=== PATIENT | female | born 1945 | race Caucasian/White ===

== ENCOUNTER → 2017-01-28 | Outpatient (CLI) | payer OTHER ==
[~2017-01-28] MED LIST: ASPI81TA28 PO; CHLO50TA PO; CHOL100010 PO; LIDO5DIS10 TD; MELO7.5T6 PO; MULTTAB45 PO; VITA400C15 PO
== END | disposition home or self-care (01) ==
LOC: C.LABSPEC 17:43
PROVIDERS: ATTEND Obstetrics & Gynecology
DX: N89.8 Other specified noninflammatory disorders of vagina (principal)

== ENCOUNTER → 2017-06-08 | Outpatient (CLI) | payer OTHER ==
[2017-06-08 10:09] LABS: BASO % 0.3 %; BASO ABS # 0.02 K/uL (0-0.2); COMPLETE YES; HEMATOCRIT 38.5 % (37-47); IG% 0.2 %; LYMPH ABS # 1.98 K/uL (1.2-3.4); MEAN CELL VOLUME 91.7 fL (80-100); MEAN CORPUSCULAR HEMOGLOBIN 31.4 pg (25-34); MEAN CORPUSCULAR HGB CONC 34.3 g/dl (32-36); MEAN PLATELET VOLUME 10.2 fL (7.4-10.4); MONO % 8.1 %; NEUT % 56.4 %; PLATELET COUNT 239 K/uL (130-400); WHITE BLOOD COUNT 5.82 K/uL (4.8-10.8)
[2017-06-08 10:35] LABS: ALT/SGPT 15 U/L (12-78); BLOOD UREA NITROGEN 15 mg/dl (7-18); BUN/CREATININE RATIO 15.7 (10-20); CALCIUM 9.6 mg/dl (8.5-10.1); CARBON DIOXIDE 28 mmol/L (21-32); CHLORIDE 100 mmol/L (98-107); CHOLESTEROL 149 mg/dl (0-200); CREATININE 0.97 mg/dl (0.60-1.20); GLUCOSE 81 mg/dl (70-99); POTASSIUM 3.9 mmol/L (3.5-5.1); SODIUM 135 mmol/L (136-145)
[2017-06-08 10:46] LABS: ALB/GLOB RATIO 1.2 (0.9-2); ALKALINE PHOSPHATASE 84 U/L (45-117); AST/SGOT 18 U/L (15-37); HDL CHOLESTEROL 50 mg/dl; LDL CHOLESTEROL CALCULATED 77 mg/dl; TRIGLYCERIDES 108 mg/dl (0-150); VERY LOW DENSITY LIPOPROT CALC 22 mg/dl
== END | disposition home or self-care (01) ==
LOC: C.LAB 09:06
PROVIDERS: ATTEND Internal Medicine Geriatric Medicine
DX: I10 Essential (primary) hypertension (principal); E78.5 Hyperlipidemia, unspecified; M19.90 Unspecified osteoarthritis, unspecified site; Z79.01 Long term (current) use of anticoagulants; I48.0 Paroxysmal atrial fibrillation

== ENCOUNTER 2023-11-24 05:13 | Observation (INO) ==
--- NOTE | 2023-10-31 09:27 | PAT Medication Instructions ---
Medication Instructions Date of Service October 31, 2023 Home Medications Medication Instructions Recorded alendronate 70 mg tablet See Rx Instructions .Route 10/07/22 .COMPLEX #12 tabs apixaban 5 mg tablet (Eliquis) 5 mg PO BID #180 tabs 09/09/23 calcium carbonate 500 mg calcium (1,250 mg) tablet (Calcium 500) 500 mg PO QAM multivitamin (Daily Multi-Vitamin tablet) 1 tab PO QAM alendronate 70 mg tablet See Rx Instructions .Route .COMPLEX apixaban 5 mg tablet (Eliquis) 5 mg PO BID atorvastatin 10 mg tablet 10 mg PO HS glucosamine sulf dipotassium Cl 750 mg-chondroitin sulf 600 mg tablet 0.5 tab PO QAM magnesium oxide 500 mg capsule 500 mg PO HS metoprolol succinate 25 mg tablet,extended release 24 hr 25 mg PO QPM ASK your prescriber and surgeon apixaban 5 mg tablet (Eliquis) 5 mg PO BID(in order for spinal or epidural anesthesia, Eliquis needs to be stopped 72 hours/3 days before surgery. Please check if okay with doctor that prescribes this to you) STOP taking 2 weeks before surgery (or as soon as possible if surgery is within 2 weeks) glucosamine sulf dipotassium Cl 750 mg-chondroitin sulf 600 mg tablet 0.5 tab PO QAM DO NOT take the morning of surgery calcium carbonate 500 mg calcium (1,250 mg) tablet (Calcium 500) 500 mg PO QAM multivitamin (Daily Multi-Vitamin tablet) 1 tab PO QAM alendronate 70 mg tablet See Rx Instructions .Route .COMPLEX Take evening before surgery atorvastatin 10 mg tablet 10 mg PO HS magnesium oxide 500 mg capsule 500 mg PO HS metoprolol succinate 25 mg tablet,extended release 24 hr 25 mg PO QPM Other Notes NOTHING TO EAT OR DRINK AFTER MIDNIGHT. If you have any questions please call us at [phone] or [phone] or [phone] or [phone]
--- NOTE | 2023-11-04 09:38 | Anesthesiology Consultation ---
Date of Service November 04, 2023 Assessment & Plan (1) Encounter for pre-operative examination: - Infectious disease screening: Per assessment on 11/04/23: No known infectious disease contacts or current infectious disease symptoms. Did have RSV 10/07/23 ([place])- resolved. No noted recent Covid positive test result. - Medication instructions: patient made aware that for neuraxial anesthesia, Apixaban needs to be held 72 hours prior to surgery. Patient voiced understanding/will check if okay with prescriber. - Cardiology visit (01/04/23): "atrial fibrillation: She is doing quite well. No symptoms. No clinical recurrence. It is possible that she has occult episodes of atrial fibrillation. However, in the absence of symptoms or documented elevated heart rates are not sure any change in therapy is required. She will continue on systemic anticoagulation.. Hypertension: Blood pressure quite good. She was interested in trying a little less medicine. She has had some element of bradycardia previously. I recommended trying 25 mg metoprolol succinate daily. Her blood pressure stays good we can reduce the prescription.. Mitral regurgitation: Mild in 2014. No murmur on examination. Plan Details Follow Up: 1 Year" - Outpatient joint assessment: Pt currently scheduled for inpatient pathway. If surgeon requests review for outpatient joint pathway, patient is not recommended candidate for outpatient joint program from anesthesia standpoint based on available information. Chart Review Chart Review: Acceptable Risk for Surgery and Patient seen in Pre Admission Testing Teaching & Discussion Pre-Anesthesia Teaching/Discussion Notes: Instructed NPO after midnight before surgery,except medications with 15 cc of water. Medication instructions provided according to the PAT guidelines. History Surgery Operation Date: 11/24/23 12:30 Proposed Procedures p Left Total Knee Arthroplasty - Kyler Kim MD Height/Weight Height: 5 ft 4 in Weight: 64.7 kg Allergies Allergy/AdvReac Type Severity Reaction Status Date / Time No Known Drug Allergies Allergy Verified 10/31/23 08:06 Medications Home Medications Medication Instructions Recorded Confirmed Last Taken calcium carbonate 500 mg calcium 500 mg PO QAM 05/15/19 10/31/23 Unknown (1,250 mg) tablet (Calcium 500) multivitamin (Daily Multi-Vitamin 1 tab PO QAM 05/15/19 10/31/23 Unknown tablet) alendronate 70 mg tablet See Rx Instructions .Route 10/07/22 10/31/23 Unknown .COMPLEX #12 tabs apixaban 5 mg tablet (Eliquis) 5 mg PO BID #180 tabs 09/09/23 10/31/23 Unknown atorvastatin 10 mg tablet 10 mg PO HS 10/31/23 10/31/23 Unknown glucosamine sulf dipotassium Cl 0.5 tab PO QAM 10/31/23 10/31/23 Unknown 750 mg-chondroitin sulf 600 mg tablet magnesium oxide 500 mg capsule 500 mg PO HS 10/31/23 10/31/23 Unknown metoprolol succinate 25 mg 25 mg PO QPM 10/31/23 10/31/23 Unknown tablet,extended release 24 hr Past Medical History Medical History Arthritis Atrial fibrillation Pulmonary vein isolation at [facility] 08/2018, "resolved issue" Follows with Dr. Briones Carotid artery plaque pt states resolved "last time checked, no blockage noted" Carotid doppler 07/2020: No hemodynamically significant stenosis seen within the carotid arteries. No significant atherosclerotic plaque within the carotid arteries. Hx of migraines Hyperlipidemia Hypertension Osteopenia after menopause Exercise / Class Metabolic Activity II 4-5 Yardwork/Stairs/Walk up hill (one FS (no CP, no SOB)) Past Family History Family History Sister Breast cancer Lung cancer Brother Myocardial infarction Diabetes Mother Myocardial infarction Hypertension Dementia Father Hypertension Lung cancer Denies family history of Ovarian cancer Prostate cancer Colorectal cancer Stroke Past Surgical History Surgical History Family history of reaction to anesthesia Sister- had problems with anesthesia, unsure of details "required CPR after childbirth" History of anesthesia reaction BP dropped with cataract surgery > "doesn't take much to work" History of colonoscopy History of tonsillectomy and adenoidectomy History of tooth extraction S/P ablation of atrial fibrillation 2017 [facility] S/P cataract surgery R/L S/P right knee arthroscopy S/P tubal ligation Past Anesthesia History Other * Patient- BP dropped with cataract surgery > "doesn't take much to work" * Sister- had problems with childbirth, unsure of details "required CPR after childbirth" History of PONV No Hx of PONV and No Hx of Motion Sickness Social History Smoking Status: Never smoker Do You Dip or Chew Tobacco: No Hx Alcohol Use: No Hx Substance Use: No Review of Systems Patient denies chest pain, shortness of breath, dyspnea on exertion, fever, chills, cough, wheezing, palpitations. Physical Exam Vital Signs VITALS BP 119/73 P 59 TEMP 98.0 SP02 97%RA RESP 18 PHYSICAL Full cervical extension range of motion. Full TMJ range of motion. TMD 3 finger breaths Mallampati Score 1 Dentition: intact, + lower right side bridge Lungs: clear throughout to auscultation Cardiac: regular rate and rhythm, no murmurs noted Spine: normal Carotid arteries: negative bruit Extremities: no LE edema Lab Results Anesthesia Preop Results Results Anesthesia Widget: WBC 5.59 K/ul (4.8-10.8) 11/04/23 Hgb 12.1 g/dl (12.0-16.0) 11/04/23 Hct 36.0 % (37.0-47.0) L 11/04/23 Plt 226 K/uL (130-400) 11/04/23 Na 137 mmol/L (136-145) 11/04/23 K 3.8 mmol/L (3.5-5.1) 11/04/23 Cl 103 mmol/L (98-107) 11/04/23 CO2 27 mmol/L (21-32) 11/04/23 BUN 18 mg/dl (6-23) 11/04/23 Creat 0.84 mg/dl (0.6-1.2) 11/04/23 Glucose Level 90 mg/dl (70-99(Fasting)) 11/04/23 PT 11.4 Seconds (9.0-12.0) 11/04/23 PTT 28 Seconds (21-31) 11/04/23 INR 1.0 (0.9-1.1) 11/04/23 COVID-19 PCR NEGATIVE (Negative) 10/07/23 Blood Type O Positive 11/04/23 Antibody Screen NEGATIVE 11/04/23 Testing Electrocardiogram Date: 11/04/23 SB at 59bpm. NS STA. No significant change compared to 05/01/2009 per development director comparison. Chest X-Ray Date: 11/04/23 FINDINGS: PA and lateral chest radiographs are compared to study dated 11/03/2006. The cardiomediastinal silhouette is top normal for projection noting atherosclerotic calcification of the thoracic aorta. Chronic interstitial thickening similar to previous. There is mild bibasilar scarring/atelectasis. The lungs and pleural spaces are otherwise clear. There is no pneumothorax. The skeletal structures are osteopenic. The bony thorax appears intact. IMPRESSION: No active disease in the chest.
--- NOTE | 2023-11-20 11:20 | History & Physical Report ---
Date of Service November 20, 2023 Assessment & Plan (1) Degenerative arthritis of knee, bilateral: 78-year-old female with a history of atrial fibrillation in the past status post ablation but still on Eliquis with advanced bilateral knee DJD. She is failed conservative measures. She is ready to proceed with surgery. Her left knee is bothering more than the right. Will go and proceed with left knee replacement. Plan will proceed with left knee replacement. The risks and benefits of this of this procedure were explained to the patient include but not limited to DVT, PE, , infection, neurovascular injury, blood clots, limited range of motion, need for further surgery in the future. The patient understands and desires to proceed. Informed consent was obtained. We did talk about stopping Eliquis 3 days preop. Will start on this prophylactically immediately postop 24 hours. Will start at a lower dose. She is planned to be discharged to home using the [facility] health program. History of Present Illness Chief Complaint: . Bilateral knee pain left side greater than the right. Primary Care Provider: Donnie Encinas MD . The patient is an 78-year-old female who presents for definitive treatment of her knees. She got a fairly long several year history of bilateral knee pain discomfort describes gotten worse over the past 5 to 6 years. The left knee bothers her more than the right. She been through extensive conservative treatment including medicines as well as injections which have helped a little bit but no long-term or significant benefit. Describes global pain. Occasional giving way. She is looking to have an surgery. Allergies Allergy/AdvReac Type Severity Reaction Status Date / Time No Known Drug Allergies Allergy Verified 10/31/23 08:06 Home Medications Medication Instructions Recorded Confirmed Type calcium carbonate 500 mg calcium 500 mg PO QAM 05/15/19 10/31/23 History (1,250 mg) tablet (Calcium 500) multivitamin (Daily Multi-Vitamin 1 tab PO QAM 05/15/19 10/31/23 History tablet) alendronate 70 mg tablet See Rx Instructions .Route 10/07/22 10/31/23 Rx .COMPLEX #12 tabs apixaban 5 mg tablet (Eliquis) 5 mg PO BID #180 tabs 09/09/23 10/31/23 Rx atorvastatin 10 mg tablet 10 mg PO HS 10/31/23 10/31/23 History glucosamine sulf dipotassium Cl 0.5 tab PO QAM 10/31/23 10/31/23 History 750 mg-chondroitin sulf 600 mg tablet magnesium oxide 500 mg capsule 500 mg PO HS 10/31/23 10/31/23 History metoprolol succinate 25 mg 25 mg PO QPM 10/31/23 10/31/23 History tablet,extended release 24 hr Past Med/Surg History Medical History Arthritis Hx of migraines Hypertension Hyperlipidemia Carotid artery plaque pt states resolved "last time checked, no blockage noted" Carotid doppler 07/2020: No hemodynamically significant stenosis seen within the carotid arteries. No significant atherosclerotic plaque within the carotid arteries. Osteopenia after menopause Atrial fibrillation Pulmonary vein isolation at [facility] 08/2018, "resolved issue" Follows with Dr. Briones Surgical History Family history of reaction to anesthesia Sister- had problems with anesthesia, unsure of details "required CPR after childbirth" History of anesthesia reaction BP dropped with cataract surgery > "doesn't take much to work" S/P right knee arthroscopy History of colonoscopy History of tooth extraction History of tonsillectomy and adenoidectomy S/P ablation of atrial fibrillation 2017 [facility] S/P tubal ligation S/P cataract surgery R/L Family History Sister Breast cancer Lung cancer Brother Myocardial infarction Diabetes Mother Myocardial infarction Hypertension Dementia Father Hypertension Lung cancer Denies family history of Ovarian cancer Prostate cancer Colorectal cancer Stroke Social History Smoking Status: Never smoker Second Hand Exposure: No; Do You Dip or Chew Tobacco: No; Hx Alcohol Use: No Hx Substance Use: No Preferred Language: Turkish Communication Ability: Effective Visual Impairment: Limited Hearing Ability: Use of Hearing Aid 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 Physical Exam . Physical examination was a pleasant healthy-appearing 78-year-old female. Looks younger than her stated age. Examination of the left knee reveals patient ambulates independently. She got varus alignment to her knee. She got bony perjury medially. Range of motion is about 10 degrees show full extension to 120 degrees of flexion. No particular pain with hip motion. No instability. She is neurologically intact. Examination of the right knee reveals a similar varus deformity. It is less severe. Small knee effusion. Bone hypertrophy medially. Range of motion is 5- 1 20. No instability. No pain with hip motion. Constitutional WD/WN, vitals as above Neck trachea midline, no thyromegaly Respiratory normal respiratory effort, lungs clear to auscultation Cardiovascular RRR, no murmur, no edema Gastrointestinal (Abdomen) normal bowel sounds, soft, nontender, no hepatosplenomegaly Results & Data Results & Data Laboratory Results . Diagnostic Findings . X-rays of both knees were reviewed. Shows advanced bilateral knee DJD. She is got complete loss of the medial joint space in both knees. She got osteophytes mostly medial but some laterally. The right knee is actually little bit worse on x-ray than the left. PG Care Time/CCT Total # of Minutes Spent Total Time Spent with Patient: Total time spent is greater than 50% in coordination of care (as documented) at patient's floor/unit and/or counseling patient: Coding Level of Care Code None Diagnoses Degenerative arthritis of knee, bilateral M17.0
[2023-11-24] MEDS: LR 500ML BOLUS, THEN 15ML/HR IV SCH (05:51)
[2023-11-24] MEDS: LR 60ML/HR IV SCH (05:51)
[2023-11-24] MEDS: CeleBREX 200 MG CAP PO SCH (05:52)
[2023-11-24] MEDS: FAMOTIDINE 20 MG TAB PO SCH (05:52)
[2023-11-24] MEDS: METOCLOPRAMIDE HCL 10 MG TABLET PO SCH (05:52)
[2023-11-24] MEDS: ACETAMINOPHEN 500 MG TAB PO SCH ×2 (05:52→14:06)
[2023-11-24] MEDS: dexAMETHasone**PF** 10 MG/ML VIAL IV SCH (05:52)
[2023-11-24] MEDS ORDERED: BUPIVACAINE 0.5 % 5 MG/1 ML PF 10ML VIAL ONE (06:21)
[2023-11-24] MEDS ORDERED: BUPIVACAINE 0.25% PF 30 ML VIAL ONE (06:22)
[2023-11-24] MEDS ORDERED: PROPOFOL IV EMULSION 10 MG/ML 20 ML VIAL IV ONE (06:43)
[2023-11-24] MEDS ORDERED: MIDAZOLAM HCL 1 MG/ML 2ML VIAL ONE (06:43)
--- NOTE | 2023-11-24 06:55 | History & Physical Bridge Note ---
Date of Service November 24, 2023 History & Physical Bridge Note I have examined the patient, reviewed the History & Physical and in the interval since the performance of the History & Physical I have noted the following changes of clinical significance: no changes noted
[2023-11-24] MEDS ORDERED: ePHEDrine sulfate 50 MG/5 ML SYR ONE (07:06)
[2023-11-24] MEDS: ceFAZolin 2000MG 2,000 MG/15 ML SYR IV SCH (07:08)
[2023-11-24] MEDS ORDERED: ePHEDrine sulfate 50 MG/ML AMP IV PRN (07:27)
[2023-11-24] MEDS ORDERED: fentaNYL citrate PF 100 MCG/2 ML VIAL IV PRN (07:27)
[2023-11-24] MEDS ORDERED: ONDANSETRON INJ 2 MG/ML 2 ML VIAL IV PRN ×2 (07:27→11:14)
[2023-11-24] MEDS ORDERED: ATROPINE SULFATE 0.1 MG/ML 10ML SYR IV PRN (07:27)
[2023-11-24] MEDS: ORTHO JOINT ANESTHETIC ONE (07:35)
[2023-11-24] MEDS: ROPIV 0.5% 246mg, Ketorolac 30mg, EPINEPHrine 0.5mg in NSS INFIL SCH (07:35)
[2023-11-24] MEDS: TRANEXAMIC ACID 1,000 MG **IV Intra-op IV SCH (07:45)
--- NOTE | 2023-11-24 09:01 | Operative Report ---
PG Post Operative Report Pre & Post Diagnosis Operation Date: 11/24/23 07:00 Pre-Op Diagnosis: Left Knee Advanced Degenerative Joint Disease Post-Op Diagnosis: Left Knee Advanced Degenerative Joint Disease I identified the patient and participated in the time-out.: Yes Procedure Operation Date: 11/24/23 07:00 Actual Procedures p Left Total Knee Arthroplasty(Left) - Kyler Kim MD Surgeon Kyler Kim MD Hr Receptionist Varun Edwards PA-C Estimated Blood Loss 50 Findings Consistent with Post-Op Diagnosis Operative findings reveal advanced left knee DJD. She had extensive grade 4 [id number] disease of the medial side of her knee. She had scattered and less severe bony and grade 4 changes laterally as well as in the patellofemoral joint. Moderate-sized joint effusion. Fixed varus deformity to her knee. Specimens Left knee sent for pathology. Anesthesia Type Spinal MAC Complications none Disposition Accompanied Patient To Recovery: No Indications Patient is an 78-year-old female is had a long history of bilateral knee pain discomfort describes gotten worse over time patient been to extensive conservative treatment which became less successful over time. The left knee does bother him more than the right. She like to proceed with a left total knee arthroplasty. Description of Procedure Operative implants consist of: 1. Biomet Vanguard size 65 left posterior stabilized femoral component. 2. Biomet size 71 tibial tray. 3. 14 mm post stabilized polyethylene insert. 4. 31 x 8 all poly patella. The patient was taken to the op room, identified, placed on the operating table in the supine position. All contact areas were appropriately padded. IV antibiotics tried by anesthesia team. A spinal anesthetic and abductor canal block had provided in the holding area. A Rivero catheter was placed in sterile fashion for the left side tip was then placed in the left lower extremities and prepped draped in usual sterile fashion. The left leg was elevated exsanguinated with use of an Esmarch and the turn was placed at 300 mmHg. An anterior approach to the left knee was then performed to longitudinal incision centered over the patella. Sharp dissection was got through subcutaneous tissue down the extensor mechanism. Medial parapatellar arthrotomy incision was made. Some subperiosteal dissection was carried out medially. The fat pad was resected from Neath patella tendon. Lateral patellofemoral ligament was released. Patella subluxated laterally and the knee was flexed with the osteophytes taken off distal femur. The ACL and PCL were then released from the distal femur and the tibia was subluxated anteriorly. The external treatment line jig was then placed in the interface the tibia and adjusted 14 mm medially. Proximal tibial cut was made remove about 2 mm of bone from the medial side. The tibia was sized to a size 71. Some osteophytes taken off medially. Attention drawn the femur. The distal femur examined with a sharp drill. Intramedullary canal was suction. A left 5 degree valgus cutting guide was placed. The distal femoral cutting block was pinned in place. Distal femoral cut was made to take an additional 3 mm of bone off distal femur. The femur was then sized to a size 65. The AP cutting block was pinned parallel to the epicondylar axis which was 5 degrees of external rotation. The anterior cut, anterior chamfer, posterior cut, posterior chamfer cuts were made. The box cutting guide was placed in the just slight lateral and the box cut was made. The knee was flexed. The remnants of the medial and lateral menisci were excised. The osteophytes taken off the posterior aspect the femur. A trial femoral component was placed. The tibial tray was pinned Natalya external rotation and the drill and stem punch used to create defect in proximal tibia for the tibial tray. The knee was then trialed and the 14 mm insert fit most appropriately. Attention drawn the patella. The patella was cleaned of all soft tissues. Patella thickness measured 21 mm in thickness was cut down to 14. Was sized to a size 31 patella. The lug holes were drilled for 31 patella. The lateral osteophyte was removed. Patella button was placed. Knee was taken through range of motion patella tracked nicely with no thumbs test. Attention drawn to place the permanent components. All trial components were removed. Bone plug was placed in the distal femur limit blood loss. A double batch Palacos G cement was mixed. A Biomet Vanguard size 65 left Po stabilized femoral component, size 71 tibial tray, 14 mm pro stabilized polyethylene insert, and a 31 x 8 all poly patella then cemented in place. The knee was brought out into full extension till cement hardened. Final cement check was then performed. The pericapsular tissues were injected with total of 100 cc of joint injection mix. The patient did receive 1 g of tranexamic acid. The tourniquet was let down for final tourniquet time of 54 minutes. Hemostasis assured use electrocautery. Extensor Metros then closed with combination 1 PDS suture #1 Vicryl suture in a [id number] fashion. Extensor Meclomen checked found to be intact and subcutaneous tissues then closed with 2 Dexon suture in a buried interrupted fashion skin was closed skin fadi. Leg was then cleaned and dried and sterile dressed with Xeroform, 4 fours, sterile cast padding, Federico bandage were applied. The patient was then transferred to the recovery room in stable condition. Patient tolerated the procedure well and there were no complications. Varun Edwards, my physician assistant center manager, was present for the entire procedure. His assistance was essential and required for appropriate patient positioning, prepping and draping, surgical exposure, performing the technical details of the operation, placement the implants, closure of the wound, and placement of the sterile bandage. I attest to the content of the Intraoperative Record and any orders documented therein. Any exceptions are noted below.
--- NOTE | 2023-11-24 09:11 | XRay Report ---
XR knee LT 1 or 2V routine HISTORY: 78 years-old Female Surgical Post Op left knee arthroplasty COMPARISON: 10/20/2023 TECHNIQUE: 2 views of the left knee FINDINGS: Total joint arthroplasty with patellar resurfacing. Anterior midline skin fadi with expected posto perative soft tissue swelling and deep tissue air. No acute fracture, dislocation or unexpected opaqu e foreign body. Arterial calcifications. IMPRESSION: Total joint arthroplasty and patellar resurfacing with expected postoperative changes. ACT 112: Negative or not required by law. The above report was generated using voice recognition software. It may contain grammatical, syntax o r spelling errors. Electronically signed by: Rosalino Beauchamp M.D. 11/24/2023 9:09 AM
[2023-11-24] MEDS ORDERED: PHENYLEPHRINE HCL 10 MG/ML VIAL ONE (09:31)
[2023-11-24] MEDS ORDERED: HYDROmorphone INJ 0.5 MG/0.5 ML SYR IV PRN (11:14)
[2023-11-24] MEDS ORDERED: METOCLOPRAMIDE HCL INJ 5 MG/ML 2 ML VIAL IV PRN (11:14)
[2023-11-24] MEDS ORDERED: NALOXONE HCL 0.4 MG/1 ML VIAL/CARP IV PRN (11:14)
[2023-11-24] MEDS ORDERED: traMADol HCL 50 MG TABLET PO PRN (11:14)
[2023-11-24] MEDS ORDERED: MAGNESIUM HYDROXIDE SUSP 30 ML UDC PO PRN (11:14)
[2023-11-24] MEDS ORDERED: GLUCOSAMINE SU PO SCH (11:14)
[2023-11-24] MEDS ORDERED: bisacodyL 10 MG SUPP PR PRN (11:14)
[2023-11-24] MEDS ORDERED: SENNA 8.6 MG TAB PO SCH (11:14)
[2023-11-24] MEDS ORDERED: [UNRECOGNIZED DRUG - OTHER] PO SCH (11:14)
[2023-11-24] MEDS ORDERED: ALUMINUM/MAGNESIUM SUSP 30 ML UDC PO PRN (11:14)
[2023-11-24] MEDS: SODIUM CHLORIDE 0.9% 1,000 ML IV SCH (12:18)
[2023-11-24] MEDS: DOCUSATE SODIUM 100 MG CAP PO SCH (13:04)
--- NOTE | 2023-11-24 13:51 | Anesthesiology Progress Note ---
Date of Service November 24, 2023 Anesthesia Post Procedure Vital Signs Vital Signs: Temp Pulse Pulse Pulse Resp BP Pulse Ox 11/24/23 13:06 36.8 C 85 16 109/65 96 11/24/23 12:35 36.4 C L 83 16 113/68 97 11/24/23 12:06 36.8 C 86 16 105/64 96 11/24/23 11:45 86 20 98/64 L 96 11/24/23 11:30 77 18 113/73 95 11/24/23 11:15 79 16 112/72 94 11/24/23 11:00 80 18 100/66 94 11/24/23 10:45 82 18 106/69 95 11/24/23 10:30 78 15 111/65 94 11/24/23 10:15 80 18 113/66 94 11/24/23 10:00 36.5 C 83 14 100/71 94 11/24/23 09:45 73 12 117/66 94 11/24/23 09:30 76 14 108/66 96 11/24/23 09:20 87 12 119/70 97 11/24/23 09:10 75 20 100/60 93 11/24/23 09:00 79 20 92/69 L 94 11/24/23 08:50 85 20 99/58 L 94 11/24/23 08:40 36.0 C L 84 21 94/60 L 97 11/24/23 05:39 36.8 C 58 L 16 138/77 94 O2 Del Method 11/24/23 13:06 Room Air 11/24/23 12:35 Room Air 11/24/23 12:06 Room Air 11/24/23 11:45 Room Air 11/24/23 11:30 Room Air 11/24/23 11:15 Room Air 11/24/23 11:00 Room Air 11/24/23 10:45 Room Air 11/24/23 10:30 Room Air 11/24/23 10:15 Room Air 11/24/23 10:00 Room Air 11/24/23 09:45 Room Air 11/24/23 09:30 Room Air 11/24/23 09:20 Room Air 11/24/23 09:10 Room Air 11/24/23 09:00 Room Air 11/24/23 08:50 Room Air 11/24/23 08:40 Room Air 11/24/23 05:39 Room Air Transfer of Care Handoff Completed per policy Notes Mental Status: alert / awake / arousable and participated in evaluation Patient Amnestic to Procedure: Yes Nausea / Vomiting: adequately controlled Pain: adequately controlled Airway Patency, RR, SpO2: stable & adequate BP & HR: stable & adequate Hydration State: stable & adequate Neuraxial Anesthesia: was administered and sensory block is resolving Anesthetic Complications: no major complications apparent and Pt Satisfied with anesthetic care
[2023-11-24] MEDS: CALCIUM CARBONATE 1250MG TAB PO SCH (14:06)
[2023-11-24] MEDS: MULTIVITAMIN TAB PO SCH (14:06)
[2023-11-24] MEDS: ceFAZolin 1000MG 1,000 MG/7.5 ML SYR IV SCH (15:21)
[2023-11-24] MEDS: TRANEXAMIC ACID / 0.7% NACL 1,000 MG/100 ML BAG IV SCH (15:21)
--- NOTE | 2023-11-24 15:26 | Electrocardiogram Report ---
Test Reason : Blood Pressure : / mmHG Vent. Rate : 078 BPM Atrial Rate : 078 BPM P-R Int : 206 ms QRS Dur : 094 ms QT Int : 416 ms P-R-T Axes : 075 003 -36 degrees QTc Int : 474 ms Normal sinus rhythm Low voltage QRS Prolonged QT Abnormal ECG When compared with ECG of 04-NOV-2023 10:01, Inverted T waves have replaced nonspecific T wave abnormality in Inferior leads T wave inversion now evident in Anterior leads QT has lengthened Confirmed by Henrique Briones ([id number]) on 11/24/2023 3:25:57 PM Referred By: Kyler Kim Confirmed By:Juan Briones
[2023-11-24] MEDS: ASCORBIC ACID 500 MG TAB PO SCH (16:49)
[2023-11-24] MEDS: KETOROLAC TROMETHAMINE 15 MG/ML VIAL IV SCH (17:21)
[2023-11-24] MEDS: ATORVASTATIN 10 MG TAB PO SCH (21:09)
[2023-11-24] MEDS: SENNA 8.6 MG TAB PO SCH (21:09)
[2023-11-24] MEDS: MAGNESIUM OXIDE 400 MG TAB PO SCH (21:10)
[2023-11-24] MEDS: METOPROLOL SUCC 25MG EXT REL TAB PO SCH (21:11)
[2023-11-25 07:00] LABS: Hematocrit (blood only) 24.8 % (37.0-47.0); Hemoglobin 8.8 g/dl (12.0-16.0); Mean Corpuscular Hemoglobin 32.6 pg (25.0-34.0); Mean Corpuscular Hgb Conc 35.5 g/dL (32.0-36.0); Mean Corpuscular Volume 91.9 fL (80.0-100.0); Mean Platelet Volume 10.4 fL (9.4-12.4); Platelet Count 172 K/uL (130-400); RDW Coefficient of Variation 12.7 % (11.5-14.5); RDW Standard Deviation 41.8 fL (36.4-46.3); White Blood Count 12.31 K/ul (4.8-10.8)
--- NOTE | 2023-11-25 07:09 | Surgery Progress Note ---
Date of Service November 25, 2023 Assessment & Plan (1) History of left knee replacement: Plan: 78-year-old female postop day 1 from left knee replacement doing quite well. Pain is controlled. She is mobilizing well. Hoping to go home. Plan: 1. DVT prophylaxis including thigh-high teds SCDs and back on Eliquis. 2. PT/OT. Weight-bear as tolerated. Left total knee protocol. 3. Pain control doing okay with current pain regimen. 4 disposition plan to discharge to home with some home health today if she does okay in therapy. Admission and Anticipated Discharge Date Admission Date: November 24, 2023 Subjective 78-year-old female postop day 1 from left knee replacement. She is doing quite well. Is been getting around well. Pain is controlled. No chest pain or shortness of breath. She is looking forward to going home today. Physical Exam Physical Exam: Physical exam shows a pleasant elderly female. She is sitting on bed and looks comfortable. Examination left leg reveals dressing clean dry and intact. No drainage. She can do a good straight leg raise. She can dorsiflex and plantarflex her foot appropriately. Respiratory: normal respiratory effort, lungs clear to auscultation Cardiovascular: RRR, no murmur, no edema Gastrointestinal (Abdomen): normal bowel sounds, soft, nontender, no hepatosplenomegaly Results & Data Vital Signs (Past 12 Hours) Vital Signs Temp Pulse Pulse Resp BP Pulse Ox O2 Del Method 11/25/23 03:30 36.6 C 64 16 99/61 L 95 Room Air 11/24/23 23:15 101/60 11/24/23 23:14 36.9 C 67 18 96/60 L 95 Room Air 11/24/23 19:15 36.5 C 62 20 113/70 100 Room Air Laboratory Results Hemoglobin 8.8. Hematocrit 24.8. Electrolytes are pending. PG Care Time/CCT Total # of Minutes Spent Total Time Spent with Patient: Total time spent is greater than 50% in coordination of care (as documented) at patient's floor/unit and/or counseling patient: Coding Level of Care Code 22944 Post Operative Follow-Up Diagnoses History of left knee replacement Z96.652
[2023-11-25 07:30] LABS: BUN Creatinine Ratio 25.7 (10-20); Calcium 7.7 mg/dl (8.6-10.3); Creatinine Clr Calc Pharmacy 38.4 ml/min; Est GFR (African American) 60.9 ml/min; Est GFR (Non-African American) 52.5 ml/min; Potassium 3.8 mmol/L (3.5-5.1)
[2023-11-25] MEDS: dexAMETHasone 10 MG in SYRINGE 0 ML IV SCH (07:53)
[2023-11-25] MEDS: APIXABAN 2.5 MG TAB PO SCH (07:53)
--- NOTE | 2023-11-29 08:44 | Discharge Summary ---
Date of Service November 29, 2023 Discharge Data Procedures Performed Operation Date: 11/24/23 07:00 Actual Procedures p Left Total Knee Arthroplasty(Left) - Kyler Kim MD Hospital Course (1) History of left knee replacement: This is a 78 year old patient admitted on 11/24/23 and underwent total knee arthroplasty. She tolerated the procedure well and there were no complications. Transferred to the PACU post op and later to the orthopedic floor for further care. She was given ancef for antibiotic prophylaxis. She was also given TINO stockings, SCDs, and eliquis for DVT prophylaxis. Hemoglobin, hematocrit, and vital signs were monitored during her hospital stay and remained stable. Did not require any blood transfusions. There were no complications during her hospital stay. By post op day #1 the patient was tolerating a regular diet, pain was reasonably controlled with oral pain medicine, and she was participating in physical therapy. On post op day #1 the patient was discharged home and set up with home health care. She was given printed discharge instructions including prescriptions for extra strength tylenol, zofran, senokot, cefadroxil, and tramadol. Continue physical therapy, weight bearing as tolerated. Continue TINO stockings. Follow up approximately 2 weeks post op or sooner if there are problems or concerns. Coding Level of Care Code None Diagnoses History of left knee replacement Z96.652
== END 2023-11-25 09:40 | disposition home health service (06) ==
LOC: ASU 05:13 → PACUINP 05:13 → 3E 12:04
DX: I10 Essential (primary) hypertension; M17.12 Unilateral primary osteoarthritis, left knee; M19.90 Unspecified osteoarthritis, unspecified site; Z79.899 Other long term (current) drug therapy; Z79.01 Long term (current) use of anticoagulants; E78.5 Hyperlipidemia, unspecified; I48.91 Unspecified atrial fibrillation